=== PATIENT | male | born 1960 | race Caucasian/White ===

== ENCOUNTER → 2021-01-22 | Outpatient (CLI) | payer OTHER ==
--- NOTE | 2021-01-22 17:57 | CONS ---
CONSULTATION DATE OF SERVICE: 01/22/2021 This 60-year-old gentleman has been evaluated in [facility] for possible obstructive sleep apnea-hypopnea syndrome. HISTORY OF PRESENT ILLNESS/SLEEP-WAKE EVALUATION: Patient's usual sleep schedule on weekdays is from 10 p.m. to 5 a.m. and on weekends from 11 p.m. to 6 or 7 a.m. No problems with falling asleep. No TV in bedroom. The patient usually sleeps on the side position. According to his , he has loud snoring. The patient wakes up from sleep with episodes of possibly gasping for air up to 3 times at night, and he has 2 episodes of nocturia at night. In the morning the patient wakes up tired, has episodes of irritability. [place] Sleepiness Scale is 9. No history of hypnagogic hallucinations, sleep paralysis or cataplexy. PAST MEDICAL HISTORY: Positive for acid reflux and diabetes. MEDICATIONS: Metformin, omeprazole. SOCIAL HISTORY: Negative for smoking. Alcohol consumption up to 3 beers practically every night. FAMILY HISTORY: Positive for cancer. REVIEW OF SYSTEMS: Multiple awakenings from sleep, loud snoring, episodes of tiredness and sleepiness during the day. No fevers. No double vision. No recent chest pain. No shortness of breath. No abdominal pain. No bleeding episodes. No blood in the urine. No seizure episodes. PHYSICAL EXAMINATION: GENERAL: Pleasant gentleman without distress. VITAL SIGNS: BP 169/106, HR 73, RR 14, height 5 feet 11 inches, weight 224.2, body mass index 31.2. HEENT: PERRLA, EOMI, evaluation of oropharynx showed tongue protrudes midline. Low position of soft palate; Mallampati III to IV. NECK: Supple, no JVD. Thyroid is not palpable. Wide neck; 17-1/4 inches in circumference. LUNGS: Clear to percussion and to auscultation. Good air exchange. No wheezing or rhonchi. HEART: S1, S2 regular. No murmurs, gallops, or rubs. ABDOMEN: Soft and nontender. Bowel sounds are present. No organomegaly appreciated. EXTREMITIES: No clubbing or cyanosis. TYING IN MACHINE OPERATOR: Awake, alert, and oriented X3. Cranial nerves 2 to 7 intact. There is no fasciculation or atrophy. noted. No focal deficits observed. IMPRESSION: 1. Loud snoring, multiple awakenings from sleep with gasping for air and nocturia, low position of soft palate, Mallampati III, wide neck, 17-1/4 inches in circumference; obstructive sleep apnea-hypopnea syndrome. 2. Mild obesity. BMI 31.2. 3. Acid reflux. 4. Diabetes mellitus. 5. Hypertension in the office today. PLAN: 1. Polysomnography for evaluation of patient's breathing during sleep. 2. CPAP/BiPAP titration if sleep study confirms obstructive sleep apnea-hypopnea syndrome. 3. Preferable position during sleep on the side. 4. No driving if patient feels any sleepiness. 5. I will see patient for follow up visit to explain results of testing and following plan. Thank you very much for referring this patient for consultation. Sincerely, Khalif Longoria MD, PhD, FAASM Diplomat of [place] [employer] Sleep Medicine Board of [place] [employer] of [employer] Medicine [employer] of [facility] [place] MMODL / IJN: [id number] /
== END ==
LOC: SLEEP 14:57
PROVIDERS: ATTEND Internal Medicine
DX: G47.33 Obstructive sleep apnea (adult) (pediatric) (principal); R35.1 Nocturia; E66.9 Obesity, unspecified; Z68.31 Body mass index [BMI] 31.0-31.9, adult; K21.9 Gastro-esophageal reflux disease without esophagitis; E11.9 Type 2 diabetes mellitus without complications; I10 Essential (primary) hypertension; Z79.84 Long term (current) use of oral hypoglycemic drugs; Z79.899 Other long term (current) drug therapy
CPT/HCPCS: 99211

== ENCOUNTER → 2022-01-07 | Outpatient (CLI) | payer OTHER ==
--- NOTE | 2022-01-07 12:09 | P.PN ---
Subjective DATE: [] FOLLOW UP VISIT. Patient with obstructive sleep apnea hypopnea syndrome return to sleep center for follow-up visit. Information from previous visit have been reviewed. Patient is using PAP equipment every night for the whole night, getting PAP supplies in time. The patient does not have significant problems with the mask, PAP unit and humidification. Ponder sleepiness scale is 5. I checked information from PAP unit. Air filter needs to be replaced. PAP unit pressure 10-15, average 14.4 cm H2O. Usage is 98 % for more then 4 hours, average 6.8 hours per night. Leak is 11 l/m, which is in acceptable range. Apnea Hypopnea Index is 1.3, which is normal. MEDICATIONS:1. Metformin 2. Omeprazole During physical exam: GENERAL: A pleasant patient without any distress. VITAL SIGNS: BP 161/95, HR 76, RR 16 , weight 225.6, temperature 97.3, oxygen saturation at room air 97 % . HEENT: PERRLA, EOMI.low position of soft palate, Mallapati 3-4 . NECK: Supple. No JVD. LUNGS: Clear to percussion and to auscultation. Good air exchange. No wheezing or rhonchi. HEART: S1, S2 regular. ABDOMEN: Soft and nontender. Slightly obese EXTREMITIES: No clubbing or cyanosis. ARCH SUPPORT TECHNICIAN: Awake, alert, and oriented x3. No focal deficit. Impressions: 1. Obstructive sleep apnea-hypopnea syndrome. Patient demonstrated great compliance with treatment, benefiting from treatment. 2. Diabetes mellitus. 3. Mild obesity. 4. Hypertension in the office several times including today. 5. Acid reflux. Plan: 1. Continue using PAP equipment every night for the whole night. 2. To change air filter at least 1-2 times per month. 3. PAP unit should stay lower then position of the head. 4. Advised patient to remove all remaining water from humidifier canister daily and make it dry after each usage. Refill canister with fresh distilled water before each usage. 5. Sleep hygiene with regular time in bed for at least 8 hours. 6. Precautions related to driving. No driving if feel any sleepiness. 7. I will maintain prescription for PAP supplies including mask, tube, filters. 8. Follow up visit in 6 months or earlier if patient has any problems. 9. Watching and losing weight. 10. Low sodium diet, monitoring blood pressure. Thank you very much for allowing me to participate in the management of your patient. Khalif Longoria MD, PhD, FAASM. Diplomat of [place] [employer] Sleep Medicine, Sleep Medicine Board by [place] [employer] of Internal Medicine [employer] of [facility] [place]
== END ==
LOC: SLEEP 09:44
PROVIDERS: ATTEND Internal Medicine
DX: G47.33 Obstructive sleep apnea (adult) (pediatric) (principal); Z99.89 Dependence on other enabling machines and devices; E11.9 Type 2 diabetes mellitus without complications; E66.8 Other obesity; I10 Essential (primary) hypertension; K21.9 Gastro-esophageal reflux disease without esophagitis; Z79.84 Long term (current) use of oral hypoglycemic drugs
CPT/HCPCS: 99212